=== PATIENT | female | born 1970 ===

== ENCOUNTER 2019-01-22 08:45 | Emergency (ER) | payer OTHER ==
[~2019-01-22] VITALS: Ht 157.5 cm; Wt 79.8 kg
[2019-01-22] MEDS ORDERED: ASPIRIN 81 MG TABLET CHEW PO ONE (09:00)
[2019-01-22 09:23] LABS: BASOPHILS # (AUTO) 0.13 x10^3/uL (0-0.1); BASOPHILS % (AUTO) 1 % (0-1); EOSINOPHILS # (AUTO) 0.17 x10^3/uL (0-0.4); EOSINOPHILS % (AUTO) 2 % (1-7); LYMPHOCYTES % (AUTO) 19 % (22-44); MD NO; MEAN CORPUSCULAR HEMOGLOBIN 29.1 pg (27.0-34.8); MEAN CORPUSCULAR HGB CONC 32.8 g/dL (32.4-35.8); MEAN CORPUSCULAR VOLUME 88.7 fL (80-100); MEAN PLATELET VOLUME 8.2 fL (7.4-10.4); MONOCYTES # (AUTO) 0.86 x10^3/uL (0.2-0.8); MONOCYTES % (AUTO) 8 % (2-9); NEUTROPHILS # (AUTO) 7.43 x10^3/uL (1.8-6.8); NEUTROPHILS % (AUTO) 70 % (42-75); PLATELET COUNT 360 x10^3/uL (130-400); RED BLOOD COUNT 4.45 x10^6/uL (3.82-5.3); RED CELL DISTRIBUTION WIDTH 14.2 % (9.6-15.2)
[2019-01-22 09:33] LABS: ALBUMIN 3.4 g/dL (3.4-5.0); ANION GAP 7 mmol/L (5-15); CALCIUM 9.2 mg/dL (8.5-10.1); CHLORIDE 107 mmol/L (98-107)
[2019-01-22 09:39] LABS: ALANINE AMINOTRANSFERASE 13 U/L (12-78); ALKALINE PHOSPHATASE 96 U/L (45-117); BILIRUBIN,TOTAL 0.4 mg/dL (0.2-1.0); CREATININE 0.66 mg/dL (0.55-1.02); TOTAL PROTEIN 8.6 g/dL (6.4-8.2); TROPONIN I < 0.015 ng/mL (0.000-0.045)
--- NOTE | 2019-01-22 09:51 | NUR ---
DIRECTOR STYLE: PT IN XRAY AT THIS TIME, TO GO TO ED ROOM 15 UPON COMPLETION OF XRAY
--- NOTE | 2019-01-22 10:45 | NUR ---
ASA HELD PER MD VERBAL ORDER
--- NOTE | 2019-01-22 11:01 | NUR ---
PT STATES SHE HAS INTERMITTENT CHEST PAIN FOR 3 WEEKS. MD EXAM SEEMS TO BE MUSCULOSKETAL AND WITH EXAM RIGHT SHOULDER PAIN NOTED. RIGHT KNEE PAIN AND SWELLING FOR A WEEK AND A HALF. 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 ADDITIONALLY, BILATERAL GREAT TOE PAIN AND JOINT SWELLING FOR ONE YEAR
[2019-01-22] MEDS ORDERED: LIDOCAINE-MPF 1%, 5ML ONE (11:04)
[2019-01-22] MEDS ORDERED: ASPIRIN 81 MG TABLET CHEW ONE (11:04)
--- NOTE | 2019-01-22 11:22 | NUR ---
Fluid obtained via arthrocentesis by and walked to lab. Pt tolerated procedure well
[2019-01-22] MEDS ORDERED: KETOROLAC 30 MG/1 ML ONE (11:24)
[2019-01-22] MEDS ORDERED: KETOROLAC 30 MG/1 ML IM ONE (11:30)
--- NOTE | 2019-01-22 12:10 | NUR ---
PAIN IMPROVED SINCE MEDICATED FOR SAME
--- NOTE | 2019-01-22 13:33 | NUR ---
AWAITING DISPO. DAUGHTER REMAINS AT BEDSIDE.
[2019-01-22 13:50] VITALS: BP 106/64
== END 2019-01-22 14:09 | disposition home or self-care (01) ==
LOC: EDBD 08:45 → ED 14:03
DX: M17.12 Unilateral primary osteoarthritis, left knee (principal); M19.072 Primary osteoarthritis, left ankle and foot
CPT/HCPCS: 20610; 36415; 71045; 73564; 73660; 80053; 84484; 85025; 85810; 89050; 89060; 93005; 96372; 99284; J1885